=== PATIENT | male | born 1955 | race Two or more races ===

== ENCOUNTER 2017-08-05 14:05 | Emergency (ER) | payer MEDICARE, MEDICAID ==
[~2017-08-05] VITALS: Ht 160 cm; Wt 90.7 kg
--- NOTE | 2017-08-05 15:09 | NUR ---
XRAY AT BS
--- NOTE | 2017-08-05 16:18 | NUR ---
BLAKE, DR. BUTLER
--- NOTE | 2017-08-05 16:37 | NUR ---
CALLED , , TRANSFERRED CALL TO
[2017-08-05 18:07] VITALS: BP 146/81
== END 2017-08-05 18:08 | disposition home or self-care (01) ==
LOC: ER 14:12
DX: M54.6 Pain in thoracic spine (principal); M54.5 Low back pain; S09.90XA Unspecified injury of head, initial encounter; E11.22 Type 2 diabetes mellitus with diabetic chronic kidney disease; I12.0 Hypertensive chronic kidney disease with stage 5 chronic kidney disease or end stage renal disease; J32.0 Chronic maxillary sinusitis; N18.6 End stage renal disease; Z99.2 Dependence on renal dialysis; W01.198A Fall on same level from slipping, tripping and stumbling with subsequent striking against other object, initial encounter; Y93.89 Activity, other specified; Y92.89 Other specified places as the place of occurrence of the external cause; Y99.8 Other external cause status
CPT/HCPCS: 70450-TC; 72074-TC; 72110-TC; A4606; Z7610